=== PATIENT | male | born 1965 | race Hispanic/Latino ===

== ENCOUNTER 2017-07-25 22:11 | Inpatient (IN) | payer MEDICAID, OTHER ==
[~2017-07-25] VITALS: Ht 167.6 cm; Wt 74.3 kg
[2017-07-25] MEDS ORDERED: ASPIRIN 325 MG TABLET ONE (22:18)
[2017-07-25 22:32] LABS: BASOPHILS % (AUTO) 0.7 % (0.0-5.0); EOSINOPHILS % (AUTO) 1.8 % (0.0-8.0); HEMATOCRIT 37.8 % (42-54); LYMPHOCYTES % (AUTO) 26.1 % (21.0-51.0); MEAN CORPUSCULAR HEMOGLOBIN 30.2 pg (27.0-33.0); MEAN CORPUSCULAR HGB CONC 34.2 g/dL (32.0-36.0); MEAN CORPUSCULAR VOLUME 88.3 fL (79-99); MONOCYTES % (AUTO) 7.5 % (3.0-13.0); NEUTROPHILS % (AUTO) 63.9 % (40.0-77.0); PLATELET COUNT (AUTO) 290 K/uL (130-400); RED BLOOD CELL COUNT(AUTO) 4.28 MIL/uL (4.50-6.20); RED CELL DISTRIBUTION WIDTH 15.3 % (11.0-15.5); WHITE BLOOD COUNT (AUTO) 8.6 K/uL (4.8-10.8)
[2017-07-25 22:42] LABS: INR 1.2 (0.85-1.15); PARTIAL THROMBOPLASTIN TIME 31.1 SEC (26.3-35.5); PROTHROMBIN TIME 12.6 SEC (9.6-11.6)
[2017-07-25 23:11] LABS: ALBUMIN 3.9 g/dL (3.5-5.0); BILIRUBIN,TOTAL 1.2 mg/dL (0.2-1.0); TOTAL PROTEIN, SERUM 7.3 g/dL (6.0-8.3)
[2017-07-26] VITALS (7 sets, daily range): BP systolic 116–145; BP diastolic 60–71
[2017-07-26] MEDS ORDERED: HYDRALAZINE HCL 20 MG/ML VIAL IV PRN (01:45)
[2017-07-26 06:29] LABS: CHOLESTEROL 154 mg/dL (<200); HDL CHOLESTEROL 35 mg/dL (29-71); LDL DIRECT 84 mg/dL (0-99); TRIGLYCERIDES 213 mg/dL (30-200)
[2017-07-26] MEDS: ATORVASTATIN CALCIUM 20 MG TABLET PO SCH (08:32)
[2017-07-26] MEDS: FAMOTIDINE 20MG TAB 20 MG TAB PO SCH (08:32)
[2017-07-26] MEDS: ASPIRIN 81MG TAB.CHEW PO SCH (08:32)
[2017-07-26] MEDS ORDERED: ENOXAPARIN SODIUM 40 MG/0.4 ML SYRINGE SQ SCH ×2 (09:00→09:30)
[2017-07-26] MEDS: WARFARIN SODIUM 2 MG TAB PO SCH (16:23)
[2017-07-26] MEDS: ACETAMINOPHEN 325 MG TAB PO PRN (16:26)
[2017-07-26] MEDS ORDERED: ENOXAPARIN SODIUM 1 MG/KG SQ SCH (21:00)
[2017-07-26] MEDS: ENOXAPARIN SODIUM 80 MG/0.8 ML SQ SCH (21:47)
[2017-07-27 04:24] VITALS: BP 131/54
[2017-07-27 05:38] LABS: BASOPHILS % (AUTO) 0.8 % (0.0-5.0); EOSINOPHILS % (AUTO) 1.9 % (0.0-8.0); HEMATOCRIT 38.6 % (42-54); LYMPHOCYTES % (AUTO) 21.3 % (21.0-51.0); MEAN CORPUSCULAR HEMOGLOBIN 30.1 pg (27.0-33.0); MEAN CORPUSCULAR HGB CONC 33.6 g/dL (32.0-36.0); MEAN CORPUSCULAR VOLUME 89.6 fL (79-99); MONOCYTES % (AUTO) 8.4 % (3.0-13.0); NEUTROPHILS % (AUTO) 67.6 % (40.0-77.0); PLATELET COUNT (AUTO) 249 K/uL (130-400); RED CELL DISTRIBUTION WIDTH 15.1 % (11.0-15.5); WHITE BLOOD COUNT (AUTO) 7.7 K/uL (4.8-10.8)
[2017-07-27 05:48] LABS: INR 1.28 (0.85-1.15); PROTHROMBIN TIME 13.4 SEC (9.6-11.6)
[2017-07-27 07:27] VITALS: BP 117/58
[2017-07-27] MEDS: ENOXAPARIN SODIUM 80 MG/0.8 ML SQ SCH ×2 (09:00→21:12)
[2017-07-27] MEDS: ASPIRIN 81MG TAB.CHEW PO SCH (09:24)
[2017-07-27] MEDS: ATORVASTATIN CALCIUM 20 MG TABLET PO SCH (09:25)
[2017-07-27] MEDS: FAMOTIDINE 20MG TAB 20 MG TAB PO SCH (09:25)
[2017-07-27 11:36] VITALS: BP 143/58
[2017-07-27] MEDS: WARFARIN SODIUM 2 MG TAB PO SCH (15:22)
[2017-07-27 16:00] VITALS: BP 122/53
[2017-07-27 18:59] VITALS: BP 106/49
[2017-07-27] MEDS: ACETAMINOPHEN 325 MG TAB PO PRN (22:34)
[2017-07-27 22:43] VITALS: BP 144/71
[2017-07-28 04:00] VITALS: BP 142/68
[2017-07-28 07:37] VITALS: BP 183/85
[2017-07-28 07:47] LABS: INR 1.09 (0.85-1.15); PARTIAL THROMBOPLASTIN TIME 33.1 SEC (26.3-35.5); PROTHROMBIN TIME 11.4 SEC (9.6-11.6)
[2017-07-28] MEDS: ASPIRIN 81MG TAB.CHEW PO SCH (08:13)
[2017-07-28] MEDS: ATORVASTATIN CALCIUM 20 MG TABLET PO SCH (08:13)
[2017-07-28] MEDS: ENOXAPARIN SODIUM 80 MG/0.8 ML SQ SCH ×2 (08:17→20:43)
[2017-07-28] MEDS: FAMOTIDINE 20MG TAB 20 MG TAB PO SCH (08:18)
[2017-07-28 10:52] VITALS: BP 134/70
[2017-07-28] MEDS: FUROSEMIDE 20 MG TABLET PO SCH (12:44)
[2017-07-28] MEDS: WARFARIN SODIUM 2 MG TAB PO SCH (12:45)
[2017-07-28] MEDS ORDERED: WARF4TAB41 PO (12:48)
[2017-07-28] MEDS ORDERED: ATOR10 PO (12:50)
[2017-07-28] MEDS ORDERED: SERT25TA5 PO (12:52)
[2017-07-28 16:25] VITALS: BP 166/73
[2017-07-28 19:26] VITALS: BP 144/58
[2017-07-28] MEDS: SERTRALINE HCL 50 MG TABLET PO SCH (20:42)
[2017-07-28 23:47] VITALS: BP 128/66
[2017-07-29 04:16] VITALS: BP 129/54
[2017-07-29 04:34] LABS: BASOPHILS % (AUTO) 0.6 % (0.0-5.0); EOSINOPHILS % (AUTO) 1.8 % (0.0-8.0); HEMATOCRIT 38.7 % (42-54); LYMPHOCYTES % (AUTO) 26.2 % (21.0-51.0); MEAN CORPUSCULAR HEMOGLOBIN 30.9 pg (27.0-33.0); MEAN CORPUSCULAR HGB CONC 33.9 g/dL (32.0-36.0); MEAN CORPUSCULAR VOLUME 91.1 fL (79-99); MONOCYTES % (AUTO) 8.5 % (3.0-13.0); NEUTROPHILS % (AUTO) 62.9 % (40.0-77.0); PLATELET COUNT (AUTO) 250 K/uL (130-400); RED BLOOD CELL COUNT(AUTO) 4.24 MIL/uL (4.50-6.20); RED CELL DISTRIBUTION WIDTH 15.4 % (11.0-15.5); WHITE BLOOD COUNT (AUTO) 7.3 K/uL (4.8-10.8)
[2017-07-29 04:44] LABS: INR 1.08 (0.85-1.15); PROTHROMBIN TIME 11.3 SEC (9.6-11.6)
[2017-07-29 04:47] LABS: POTASSIUM 5.1 mmol/L (3.5-5.1)
[2017-07-29 07:00] VITALS: BP 138/58
[2017-07-29] MEDS: REGADENOSON 0.4 MG/5 ML PF SYG IVP SCH (07:30)
[2017-07-29] MEDS: ASPIRIN 81MG TAB.CHEW PO SCH (08:25)
[2017-07-29] MEDS: FUROSEMIDE 20 MG TABLET PO SCH (08:25)
[2017-07-29] MEDS: ATORVASTATIN CALCIUM 20 MG TABLET PO SCH (08:25)
[2017-07-29] MEDS: ENOXAPARIN SODIUM 80 MG/0.8 ML SQ SCH ×2 (08:26→21:14)
[2017-07-29] MEDS: WARFARIN SODIUM 2 MG TAB PO SCH (10:46)
[2017-07-29] MEDS: WARFARIN SODIUM 5 MG TAB PO SCH (10:49)
[2017-07-29 11:00] VITALS: BP 142/64
[2017-07-29 16:00] VITALS: BP 144/61
[2017-07-29 19:30] VITALS: BP 127/73
[2017-07-29] MEDS: SERTRALINE HCL 50 MG TABLET PO SCH (21:12)
[2017-07-29 23:37] VITALS: BP 119/51
[2017-07-29] MEDS: ACETAMINOPHEN 325 MG TAB PO PRN (23:43)
[2017-07-30 04:07] VITALS: BP 115/50
[2017-07-30 04:16] LABS: POTASSIUM 5.6 mmol/L (3.5-5.1)
[2017-07-30 04:50] LABS: INR 1.15 (0.85-1.15)
[2017-07-30 07:34] VITALS: BP 128/66
[2017-07-30] MEDS: ATORVASTATIN CALCIUM 20 MG TABLET PO SCH (07:53)
[2017-07-30] MEDS: ENOXAPARIN SODIUM 80 MG/0.8 ML SQ SCH (07:53)
[2017-07-30] MEDS: ASPIRIN 81MG TAB.CHEW PO SCH (07:53)
[2017-07-30] MEDS: FUROSEMIDE 20 MG TABLET PO SCH (07:53)
[2017-07-30 11:01] VITALS: BP 132/64
[2017-07-30] MEDS ORDERED: REGADENOSON 0.4 MG/5 ML PF SYG IVP SCH (12:00)
[2017-07-30] MEDS: REGADENOSON 0.4 MG/5 ML PF SYG IVP SCH (13:18)
[2017-07-30] MEDS: ACETAMINOPHEN 325 MG TAB PO PRN ×2 (14:04→21:18)
[2017-07-30 16:13] VITALS: BP 135/75
[2017-07-30] MEDS: WARFARIN SODIUM 5 MG TAB PO SCH (16:19)
[2017-07-30 20:11] VITALS: BP 136/64
[2017-07-30] MEDS: SERTRALINE HCL 50 MG TABLET PO SCH (21:15)
[2017-07-30 23:58] VITALS: BP 137/61
[2017-07-31] VITALS (11 sets, daily range): BP systolic 100–135; BP diastolic 51–89
[2017-07-31 04:45] LABS: BASOPHILS % (AUTO) 0.6 % (0.0-5.0); EOSINOPHILS % (AUTO) 1.9 % (0.0-8.0); HEMATOCRIT 39.3 % (42-54); LYMPHOCYTES % (AUTO) 30.1 % (21.0-51.0); MEAN CORPUSCULAR HGB CONC 33.6 g/dL (32.0-36.0); MEAN CORPUSCULAR VOLUME 89.5 fL (79-99); MONOCYTES % (AUTO) 9.4 % (3.0-13.0); PLATELET COUNT (AUTO) 240 K/uL (130-400); RED BLOOD CELL COUNT(AUTO) 4.38 MIL/uL (4.50-6.20); RED CELL DISTRIBUTION WIDTH 15.2 % (11.0-15.5); WHITE BLOOD COUNT (AUTO) 6.4 K/uL (4.8-10.8)
[2017-07-31 04:53] LABS: CREATININE 1.1 mg/dL (0.5-1.5); POTASSIUM 4.9 mmol/L (3.5-5.1)
[2017-07-31] MEDS: ATORVASTATIN CALCIUM 20 MG TABLET PO SCH (07:09)
[2017-07-31] MEDS: ASPIRIN 81MG TAB.CHEW PO SCH (07:09)
[2017-07-31] MEDS: FUROSEMIDE 20 MG TABLET PO SCH (07:09)
[2017-07-31 07:44] LABS: INR 1.11 (0.85-1.15); PARTIAL THROMBOPLASTIN TIME 29.9 SEC (26.3-35.5); PROTHROMBIN TIME 11.6 SEC (9.6-11.6)
[2017-07-31] MEDS ORDERED: HEPARIN SODIUM 1000UNIT/ML 10ML VIAL ONE (13:33)
[2017-07-31] MEDS ORDERED: NITROGLYCERIN 5 MG/ML 10 ML VIAL IV ONE (13:33)
[2017-07-31] MEDS ORDERED: LIDOCAINE HCL 2% 20ML ONE (13:34)
[2017-07-31] MEDS ORDERED: IOPAMIDOL-370 100 ML VIAL IV ONE (13:34)
[2017-07-31] MEDS ORDERED: IOPAMIDOL-370 75 ML VIAL IV ONE (13:34)
[2017-07-31] MEDS ORDERED: SODIUM BICARB 50MEQ 50ML VIAL ONE (15:45)
[2017-07-31] MEDS: WARFARIN SODIUM 5 MG TAB PO SCH (15:46)
[2017-07-31] MEDS ORDERED: MIDAZOLAM HCL 1 MG/ML 2ML VIAL ONE ×2 (15:48→16:03)
[2017-07-31] MEDS ORDERED: MEPERIDINE-PF 25 MG/ML SYG ONE ×2 (15:48→16:02)
[2017-07-31] MEDS: SODIUM CHLORIDE 0.9% 10 ML VIAL IVP SCH (17:08)
[2017-07-31 19:57] LABS: CREATININE 1.1 mg/dL (0.5-1.5); POTASSIUM 5.1 mmol/L (3.5-5.1)
[2017-07-31] MEDS: SERTRALINE HCL 50 MG TABLET PO SCH (20:49)
[2017-07-31 23:11] LABS: HEMATOCRIT 38.2 % (42-54); MEAN CORPUSCULAR HEMOGLOBIN 30.3 pg (27.0-33.0); MEAN CORPUSCULAR VOLUME 89.2 fL (79-99); PLATELET COUNT (AUTO) 247 K/uL (130-400); RED BLOOD CELL COUNT(AUTO) 4.29 MIL/uL (4.50-6.20); RED CELL DISTRIBUTION WIDTH 15.1 % (11.0-15.5); WHITE BLOOD COUNT (AUTO) 7.6 K/uL (4.8-10.8)
[2017-08-01] VITALS (7 sets, daily range): BP systolic 108–144; BP diastolic 55–75
[2017-08-01] MEDS: HEPARIN 25000 UNITS/250 ML D5W 250 ML IV SCH ×2 (00:22→17:50)
[2017-08-01] MEDS: SODIUM CHLORIDE 0.9% 10 ML VIAL IVP SCH ×3 (00:58→16:45)
[2017-08-01] MEDS: ATORVASTATIN CALCIUM 20 MG TABLET PO SCH (10:06)
[2017-08-01] MEDS: ASPIRIN 81MG TAB.CHEW PO SCH (10:06)
[2017-08-01] MEDS: FUROSEMIDE 20 MG TABLET PO SCH (10:06)
[2017-08-01] MEDS: SERTRALINE HCL 50 MG TABLET PO SCH (20:39)
[2017-08-01] MEDS: ACETAMINOPHEN 325 MG TAB PO PRN (20:43)
[2017-08-02] MEDS: SODIUM CHLORIDE 0.9% 10 ML VIAL IVP SCH ×3 (01:54→16:45)
[2017-08-02 03:55] LABS: BASOPHILS % (AUTO) 0.6 % (0.0-5.0); EOSINOPHILS % (AUTO) 1.8 % (0.0-8.0); HEMATOCRIT 37.6 % (42-54); LYMPHOCYTES % (AUTO) 34.9 % (21.0-51.0); MEAN CORPUSCULAR HEMOGLOBIN 30.7 pg (27.0-33.0); MEAN CORPUSCULAR HGB CONC 34.6 g/dL (32.0-36.0); MEAN CORPUSCULAR VOLUME 88.7 fL (79-99); MONOCYTES % (AUTO) 9.9 % (3.0-13.0); NEUTROPHILS % (AUTO) 52.8 % (40.0-77.0); PLATELET COUNT (AUTO) 233 K/uL (130-400); RED BLOOD CELL COUNT(AUTO) 4.24 MIL/uL (4.50-6.20); RED CELL DISTRIBUTION WIDTH 15.1 % (11.0-15.5); WHITE BLOOD COUNT (AUTO) 6.9 K/uL (4.8-10.8)
[2017-08-02 03:57] VITALS: BP 112/54
[2017-08-02 04:06] LABS: CREATININE 1.1 mg/dL (0.5-1.5); POTASSIUM 4.7 mmol/L (3.5-5.1)
[2017-08-02 07:00] VITALS: BP 120/66
[2017-08-02] MEDS: ASPIRIN 81MG TAB.CHEW PO SCH (09:53)
[2017-08-02] MEDS: ATORVASTATIN CALCIUM 20 MG TABLET PO SCH (09:53)
[2017-08-02] MEDS: FUROSEMIDE 20 MG TABLET PO SCH (09:53)
[2017-08-02] MEDS: CEFUROXIME SODIUM 1.5 GM VIAL IVP SCH (10:15)
[2017-08-02 11:00] VITALS: BP 115/50
[2017-08-02 11:31] LABS: HEMOGLOBIN A1C 4.8 % (4.0-6.0)
[2017-08-02] MEDS: HEPARIN 25000 UNITS/250 ML D5W 250 ML IV SCH (12:15)
[2017-08-02 16:00] VITALS: BP 123/59
[2017-08-02 18:57] LABS: CREATININE 1.1 mg/dL (0.5-1.5); POTASSIUM 4.8 mmol/L (3.5-5.1)
[2017-08-02 19:29] VITALS: BP 126/61
[2017-08-02] MEDS: SERTRALINE HCL 50 MG TABLET PO SCH (20:03)
[2017-08-02 23:42] VITALS: BP 131/59
[2017-08-03] MEDS: SODIUM CHLORIDE 0.9% 10 ML VIAL IVP SCH ×4 (01:14→19:53)
[2017-08-03 03:48] LABS: BASOPHILS % (AUTO) 0.5 % (0.0-5.0); EOSINOPHILS % (AUTO) 1.9 % (0.0-8.0); HEMATOCRIT 36.8 % (42-54); MEAN CORPUSCULAR HEMOGLOBIN 31.3 pg (27.0-33.0); MEAN CORPUSCULAR VOLUME 89.6 fL (79-99); MONOCYTES % (AUTO) 10.2 % (3.0-13.0); NEUTROPHILS % (AUTO) 59.4 % (40.0-77.0); PLATELET COUNT (AUTO) 228 K/uL (130-400); RED BLOOD CELL COUNT(AUTO) 4.11 MIL/uL (4.50-6.20); RED CELL DISTRIBUTION WIDTH 15.1 % (11.0-15.5); WHITE BLOOD COUNT (AUTO) 7.7 K/uL (4.8-10.8)
[2017-08-03 03:54] VITALS: BP 110/50
[2017-08-03 03:59] LABS: INR 0.97 (0.85-1.15); PARTIAL THROMBOPLASTIN TIME 26.9 SEC (26.3-35.5); PROTHROMBIN TIME 10.2 SEC (9.6-11.6)
[2017-08-03 04:14] LABS: POTASSIUM 4.4 mmol/L (3.5-5.1)
[2017-08-03] MEDS ORDERED: SODIUM CHLORIDE 0.9% 1000ML 1,000 ML IV ONE (06:07)
[2017-08-03] MEDS ORDERED: CEFUROXIME 1.5GM+NS 100ML 100 ML IV SCH (07:00)
[2017-08-03] MEDS ORDERED: NITROGLYCERIN 50 MG/D5% WATER 0 BOT ONE (07:02)
[2017-08-03] MEDS ORDERED: BACITRACIN 50,000 UNIT VIAL ONE (07:04)
[2017-08-03] MEDS ORDERED: NITROGLYCERIN 50 MG/D5% WATER 1 BOT ONE (07:04)
[2017-08-03 08:30] VITALS: BP 144/70
[2017-08-03] MEDS: ATORVASTATIN CALCIUM 20 MG TABLET PO SCH ×2 (09:00→12:24)
[2017-08-03] MEDS: FUROSEMIDE 20 MG TABLET PO SCH ×2 (09:00→12:25)
[2017-08-03] MEDS: ASPIRIN 81MG TAB.CHEW PO SCH ×2 (09:00→12:24)
[2017-08-03] MEDS: CEFUROXIME SODIUM 1.5 GM VIAL IVP SCH (10:15)
[2017-08-03] MEDS ORDERED: WARFARIN SODIUM 10 MG TABLET PO SCH (10:30)
[2017-08-03] MEDS ORDERED: HEPARIN 25000 UNITS/250 ML D5W 250 ML IV SCH (10:30)
[2017-08-03] MEDS ORDERED: HEPARIN SODIUM 5000UNIT/ML 1ML VIAL SQ PRN (10:30)
[2017-08-03 11:00] VITALS: BP 134/64
[2017-08-03 11:51] LABS: INR 0.95 (0.85-1.15); PARTIAL THROMBOPLASTIN TIME 27.6 SEC (26.3-35.5)
[2017-08-03] MEDS: HEPARIN 25000 UNITS/250 ML D5W 250 ML IV SCH (12:31)
[2017-08-03 16:00] VITALS: BP 145/66
[2017-08-03 19:14] VITALS: BP 123/53
[2017-08-03] MEDS: SERTRALINE HCL 50 MG TABLET PO SCH (19:52)
[2017-08-03 23:28] VITALS: BP 128/60
[2017-08-04 03:36] VITALS: BP 105/56
[2017-08-04 03:59] LABS: BASOPHILS % (AUTO) 0.8 % (0.0-5.0); EOSINOPHILS % (AUTO) 2.7 % (0.0-8.0); HEMATOCRIT 38.9 % (42-54); LYMPHOCYTES % (AUTO) 30.8 % (21.0-51.0); MEAN CORPUSCULAR HEMOGLOBIN 30.5 pg (27.0-33.0); MEAN CORPUSCULAR HGB CONC 34.2 g/dL (32.0-36.0); MEAN CORPUSCULAR VOLUME 89.2 fL (79-99); MONOCYTES % (AUTO) 10.8 % (3.0-13.0); NEUTROPHILS % (AUTO) 54.9 % (40.0-77.0); PLATELET COUNT (AUTO) 243 K/uL (130-400); RED BLOOD CELL COUNT(AUTO) 4.36 MIL/uL (4.50-6.20); WHITE BLOOD COUNT (AUTO) 8.1 K/uL (4.8-10.8)
[2017-08-04 04:06] LABS: INR 0.98 (0.85-1.15); PARTIAL THROMBOPLASTIN TIME 69.7 SEC (26.3-35.5); PROTHROMBIN TIME 10.3 SEC (9.6-11.6)
[2017-08-04 07:00] VITALS: BP 122/62
[2017-08-04] MEDS: FUROSEMIDE 20 MG TABLET PO SCH (09:28)
[2017-08-04] MEDS: ATORVASTATIN CALCIUM 20 MG TABLET PO SCH (09:28)
[2017-08-04] MEDS: SODIUM CHLORIDE 0.9% 10 ML VIAL IVP SCH ×3 (09:28→23:15)
[2017-08-04] MEDS: ASPIRIN 81MG TAB.CHEW PO SCH (09:28)
[2017-08-04 11:00] VITALS: BP 132/68
[2017-08-04 11:08] LABS: INR 1.02 (0.85-1.15); PARTIAL THROMBOPLASTIN TIME 47.3 SEC (26.3-35.5); PROTHROMBIN TIME 10.7 SEC (9.6-11.6)
[2017-08-04] MEDS ORDERED: WARFARIN SODIUM 10 MG TABLET PO SCH (14:15)
[2017-08-04 15:30] VITALS: BP 126/54
[2017-08-04 17:19] LABS: INR 1.02 (0.85-1.15); PROTHROMBIN TIME 10.7 SEC (9.6-11.6)
[2017-08-04 19:07] VITALS: BP 124/57
[2017-08-04] MEDS: SERTRALINE HCL 50 MG TABLET PO SCH (19:50)
[2017-08-04 23:09] VITALS: BP 111/66
[2017-08-05 03:25] VITALS: BP 103/49
[2017-08-05 05:47] LABS: INR 1.1 (0.85-1.15); PARTIAL THROMBOPLASTIN TIME 73.4 SEC (26.3-35.5); PROTHROMBIN TIME 11.5 SEC (9.6-11.6)
[2017-08-05] MEDS: HEPARIN 25000 UNITS/250 ML D5W 250 ML IV SCH (06:39)
[2017-08-05] MEDS: SODIUM CHLORIDE 0.9% 10 ML VIAL IVP SCH ×3 (07:50→23:12)
[2017-08-05] MEDS: ATORVASTATIN CALCIUM 20 MG TABLET PO SCH (07:50)
[2017-08-05] MEDS: FUROSEMIDE 20 MG TABLET PO SCH (07:50)
[2017-08-05] MEDS: ASPIRIN 81MG TAB.CHEW PO SCH (07:50)
[2017-08-05 08:14] VITALS: BP 117/63
[2017-08-05] MEDS: ACETAMINOPHEN 325 MG TAB PO PRN ×2 (08:50→20:39)
[2017-08-05 11:49] VITALS: BP 120/70
[2017-08-05 12:11] LABS: INR 1.15 (0.85-1.15); PARTIAL THROMBOPLASTIN TIME 50.7 SEC (26.3-35.5)
[2017-08-05 16:00] VITALS: BP 122/57
[2017-08-05] MEDS ORDERED: WARFARIN SODIUM 10 MG TABLET PO SCH (16:00)
[2017-08-05 19:22] VITALS: BP 135/59
[2017-08-05] MEDS: SERTRALINE HCL 50 MG TABLET PO SCH (20:39)
[2017-08-05 23:17] VITALS: BP 119/59
[2017-08-06 03:20] VITALS: BP 106/56
[2017-08-06 05:27] LABS: BASOPHILS % (AUTO) 0.9 % (0.0-5.0); EOSINOPHILS % (AUTO) 2.3 % (0.0-8.0); HEMATOCRIT 37.3 % (42-54); LYMPHOCYTES % (AUTO) 32.8 % (21.0-51.0); MEAN CORPUSCULAR HEMOGLOBIN 30.6 pg (27.0-33.0); MEAN CORPUSCULAR HGB CONC 34.6 g/dL (32.0-36.0); MEAN CORPUSCULAR VOLUME 88.2 fL (79-99); MONOCYTES % (AUTO) 8.8 % (3.0-13.0); NEUTROPHILS % (AUTO) 55.2 % (40.0-77.0); PLATELET COUNT (AUTO) 235 K/uL (130-400); RED BLOOD CELL COUNT(AUTO) 4.23 MIL/uL (4.50-6.20); RED CELL DISTRIBUTION WIDTH 15.2 % (11.0-15.5); WHITE BLOOD COUNT (AUTO) 5.7 K/uL (4.8-10.8)
[2017-08-06 05:31] LABS: POTASSIUM 4.7 mmol/L (3.5-5.1)
[2017-08-06 07:51] VITALS: BP 107/46
[2017-08-06] MEDS: ASPIRIN 81MG TAB.CHEW PO SCH (09:15)
[2017-08-06] MEDS: ATORVASTATIN CALCIUM 20 MG TABLET PO SCH (09:15)
[2017-08-06] MEDS: FUROSEMIDE 20 MG TABLET PO SCH (09:15)
[2017-08-06] MEDS: ACETAMINOPHEN 325 MG TAB PO PRN ×2 (09:16→17:24)
[2017-08-06] MEDS: HEPARIN 25000 UNITS/250 ML D5W 250 ML IV SCH (09:21)
[2017-08-06] MEDS: SODIUM CHLORIDE 0.9% 10 ML VIAL IVP SCH ×2 (09:21→15:46)
[2017-08-06 11:15] VITALS: BP 143/79
[2017-08-06 16:15] VITALS: BP 133/61
[2017-08-06 19:00] VITALS: BP 143/74
[2017-08-06] MEDS: SERTRALINE HCL 50 MG TABLET PO SCH (20:52)
[2017-08-06 23:00] VITALS: BP 117/63
[2017-08-07] MEDS: SODIUM CHLORIDE 0.9% 10 ML VIAL IVP SCH ×2 (00:45→08:45)
[2017-08-07 03:00] VITALS: BP 108/57
[2017-08-07] MEDS: ACETAMINOPHEN 325 MG TAB PO PRN ×2 (03:56→13:24)
[2017-08-07 04:16] LABS: BASOPHILS % (AUTO) 0.6 % (0.0-5.0); EOSINOPHILS % (AUTO) 2.4 % (0.0-8.0); HEMATOCRIT 36.8 % (42-54); LYMPHOCYTES % (AUTO) 32.7 % (21.0-51.0); MEAN CORPUSCULAR HEMOGLOBIN 30.9 pg (27.0-33.0); MEAN CORPUSCULAR HGB CONC 34.4 g/dL (32.0-36.0); MEAN CORPUSCULAR VOLUME 89.7 fL (79-99); MONOCYTES % (AUTO) 9.9 % (3.0-13.0); NEUTROPHILS % (AUTO) 54.4 % (40.0-77.0); PLATELET COUNT (AUTO) 241 K/uL (130-400); RED CELL DISTRIBUTION WIDTH 14.7 % (11.0-15.5); WHITE BLOOD COUNT (AUTO) 7.3 K/uL (4.8-10.8)
[2017-08-07 04:23] LABS: INR 1.3 (0.85-1.15); PARTIAL THROMBOPLASTIN TIME 63.8 SEC (26.3-35.5); PROTHROMBIN TIME 13.6 SEC (9.6-11.6)
[2017-08-07 04:25] LABS: CREATININE 1.2 mg/dL (0.5-1.5); POTASSIUM 4.8 mmol/L (3.5-5.1)
[2017-08-07 07:00] VITALS: BP 120/61
[2017-08-07 11:00] VITALS: BP 139/77
[2017-08-07] MEDS ORDERED: WARF4TAB41 PO (13:21)
[2017-08-07] MEDS: ATORVASTATIN CALCIUM 20 MG TABLET PO SCH (13:24)
[2017-08-07] MEDS: ASPIRIN 81MG TAB.CHEW PO SCH (13:25)
[2017-08-07] MEDS: FUROSEMIDE 20 MG TABLET PO SCH (13:25)
[2017-08-07] MEDS ORDERED: WARFARIN SODIUM 10 MG TABLET PO SCH (13:45)
== END 2017-08-07 16:26 | disposition home or self-care (01) | DRG 286 ==
LOC: EDH 22:11 → OBSVTOIN 22:12 → EDHIP 22:12 → 4CH 07-26 05:44 → 2BH 07-27 14:04 → 2AH 07-28 17:53 → 2CV 08-03 06:38 → 2AH 08-03 08:26
PROVIDERS: ADMIT Family Medicine; ATTEND Family Medicine
PROC: B2111ZZ Fluoroscopy of Multiple Coronary Arteries using Low Osmolar Contrast (ICD-10-PCS; principal; 2017-07-31)
PROC: 4A023N8 Measurement of Cardiac Sampling and Pressure, Bilateral, Percutaneous Approach (ICD-10-PCS; 2017-07-31)
PROC: B3101ZZ Fluoroscopy of Thoracic Aorta using Low Osmolar Contrast (ICD-10-PCS; 2017-07-31)
DX: R07.89 Other chest pain (principal); I50.33 Acute on chronic diastolic (congestive) heart failure; I25.10 Atherosclerotic heart disease of native coronary artery without angina pectoris; I11.0 Hypertensive heart disease with heart failure; E78.5 Hyperlipidemia, unspecified; I10 Essential (primary) hypertension; R55 Syncope and collapse; Z95.2 Presence of prosthetic heart valve; Z59.0 Homelessness; I35.0 Nonrheumatic aortic (valve) stenosis; Z79.01 Long term (current) use of anticoagulants; Z82.49 Family history of ischemic heart disease and other diseases of the circulatory system; Z86.73 Personal history of transient ischemic attack (TIA), and cerebral infarction without residual deficits; Z91.19 Patient's noncompliance with other medical treatment and regimen; F32.9 Major depressive disorder, single episode, unspecified; F41.9 Anxiety disorder, unspecified; Z90.49 Acquired absence of other specified parts of digestive tract
CPT/HCPCS: 36415; 71045; 78452; 80048; 80053; 80061; 82550; 82553; 83036; 83874; 83880; 84484; 85025; 85027; 85610; 85730; 86850; 86900; 86901; 86922; 93005; 93017; 93306; 93456; 93567; 93880; 94010; 96374; 99156; 99157; A4218; A9500; C1760; C1894; J0697; J1644; J1650; J2175; J2250; J2785; J3490; J7030; Q9967